=== PATIENT | female | born 1970 | race Two or more races ===

== ENCOUNTER 2018-02-14 07:25 | Outpatient (CLI) | payer OTHER ==
[~2018-02-14 07:25] MED LIST: SYNTHROID50 MCG
== END 2018-02-14 07:42 | disposition home or self-care (01) ==
LOC: MAMO-SONO 07:25
DX: E03.8 Other specified hypothyroidism (principal); N60.11 Diffuse cystic mastopathy of right breast; N60.12 Diffuse cystic mastopathy of left breast

== ENCOUNTER 2019-02-18 07:17 | Outpatient (CLI) | payer OTHER ==
[~2019-02-18 07:17] MED LIST changes: +DICLOFENAC SODI50 MG PO
== END 2019-02-18 07:31 | disposition home or self-care (01) ==
LOC: MAMO-SONO 07:17
DX: N60.11 Diffuse cystic mastopathy of right breast (principal); N60.12 Diffuse cystic mastopathy of left breast; Z12.31 Encounter for screening mammogram for malignant neoplasm of breast; E03.8 Other specified hypothyroidism

== ENCOUNTER 2020-03-30 12:10 | Outpatient (CLI) | payer OTHER | END 2020-03-30 13:45 | disposition home or self-care (01) | LOC: MAMO-SONO 12:10 | DX: Z12.31 Encounter for screening mammogram for malignant neoplasm of breast (principal); Z87.898 Personal history of other specified conditions; N60.11 Diffuse cystic mastopathy of right breast; N60.12 Diffuse cystic mastopathy of left breast; E03.8 Other specified hypothyroidism ==

== ENCOUNTER 2021-04-01 07:29 | Outpatient (CLI) | payer OTHER ==
[2021-04-07] MEDS ORDERED: DICLOFENAC POTA50 MG PO (09:48)
== END 2021-04-01 07:47 | disposition home or self-care (01) ==
LOC: MAMO-SONO 07:29
PROVIDERS: ATTEND Family Medicine
DX: N64.4 Mastodynia (principal); E04.1 Nontoxic single thyroid nodule

== ENCOUNTER 2022-12-06 07:19 | Outpatient (CLI) | payer OTHER ==
[~2022-12-06 07:19] MED LIST changes: +DICLOFENAC POTA50 MG PO
== END 2022-12-06 07:29 | disposition home or self-care (01) ==
LOC: SONOGRAMA 07:19
PROVIDERS: ATTEND Obstetrics & Gynecology
DX: R19.00 Intra-abdominal and pelvic swelling, mass and lump, unspecified site (principal)

== ENCOUNTER → 2023-04-14 | Outpatient (CLI) | payer OTHER ==
[~2023-04-14] MED LIST changes: +METAXALONE800 MG PO
== END | disposition home or self-care (01) ==
LOC: MAMO-SONO 07:28
PROVIDERS: ATTEND Obstetrics & Gynecology
DX: N60.11 Diffuse cystic mastopathy of right breast (principal); N60.12 Diffuse cystic mastopathy of left breast; Z12.31 Encounter for screening mammogram for malignant neoplasm of breast; N95.1 Menopausal and female climacteric states

== ENCOUNTER 2025-04-17 07:27 | Outpatient (CLI) | payer OTHER | END 2025-04-17 07:38 | disposition home or self-care (01) | LOC: MAMO-SONO 07:27 | PROVIDERS: ATTEND Obstetrics & Gynecology | DX: N63.10 Unspecified lump in the right breast, unspecified quadrant (principal); N63.20 Unspecified lump in the left breast, unspecified quadrant; Z12.31 Encounter for screening mammogram for malignant neoplasm of breast; E34.9 Endocrine disorder, unspecified ==